=== PATIENT | male | born 1995 | race Two or more races ===

== ENCOUNTER 2021-04-29 13:21 | Emergency (ER) | payer OTHER ==
[~2021-04-29] VITALS: Ht 177.8 cm; Wt 96.6 kg
[2021-04-29] MEDS ORDERED: DIPHENHYDRAMINE25 MG (15:03)
[2021-04-29] MEDS ORDERED: MEDROLPACK PO (15:11)
[2021-04-29] MEDS ORDERED: ALL DAY ALLERGY10 M3 PO (15:11)
== END 2021-04-29 16:08 | disposition home or self-care (01) ==
LOC: ER 13:21
DX: L23.9 Allergic contact dermatitis, unspecified cause (principal); L50.8 Other urticaria